=== PATIENT | male | born 1970 | race American Indian/Alaskan Native ===

== ENCOUNTER 2017-04-04 12:06 | Emergency (ER) | payer SELFPAY ==
[2017-04-04 12:13] VITALS: BP 161/78; PULSE 62; RESP 18; TEMP 98.2; O2SAT 100
--- NOTE | 2017-04-04 13:09 | C.PDOC ---
History Of Present Illness 46 yr old male with history of hemorrhoids, presents to the ER with complaints of painful lump to the rectal area for the past 5 day. Patient reports of intermittent rectal bleeding with bowel movement. Patient reports he has been using preparation H but the symptoms continue. Denies fever, nausea, vomiting, abdominal pain, diarrhea or dysuria. Time Seen by Provider: 04/04/17 12:21 Chief Complaint (Nursing): GI Problem History Per: Patient History/Exam Limitations: no limitations Onset/Duration Of Symptoms: Days (5) Recent travel outside of the [place]: No Past Medical History Reviewed: Historical Data, Nursing Documentation, Vital Signs Vital Signs: Last Vital Signs Temp 98.2 F 04/04/17 12:12 Pulse 62 04/04/17 12:12 Resp 18 04/04/17 12:12 BP 161/78 H 04/04/17 12:12 Pulse Ox 100 04/04/17 20:41 - Medical History PMH: No Chronic Diseases Family History: States: No Known Family Hx - Social History Hx Alcohol Use: No Hx Substance Use: No Review Of Systems Except As Marked, All Systems Reviewed And Found Negative. Constitutional: Negative for: Fever Gastrointestinal: Positive for: Rectal Pain (Painful lump to the rectal area with intermittent bleeding with BM). Negative for: Nausea, Vomiting, Abdominal Pain, Diarrhea, Constipation Physical Exam - Physical Exam Appears: Non-toxic, No Acute Distress Skin: Warm, Dry, No Rash Head: Atraumatic, Normacephalic Eye(s): bilateral: Normal Inspection Oral Mucosa: Moist Neck: Normal ROM Cardiovascular: Rhythm Regular, No Friction Rub, No Murmur Respiratory: Normal Breath Sounds, No Rales, No Rhonchi, No Wheezing Gastrointestinal/Abdominal: Soft, No Tenderness Rectal: Hemorrhoids (Thrombosed hemorrhoid to the 6 oclock position) Back: Normal Inspection, No CVA Tenderness Extremity: Normal ROM, No Swelling Neurological/Psych: Oriented x3, Normal Speech, Normal Motor Gait: Steady ED Course And Treatment O2 Sat by Pulse Oximetry: 100 (RA) Pulse Ox Interpretation: Normal Medical Decision Making Medical Decision Making: hemorrhoid is past 4 days and unable to excise at this point. Patient was referred to general surgeon. Disposition - Disposition Referrals: Froylan Negrete MD [Staff Provider] - Veronica Acosta MD [Staff Provider] - Disposition: HOME/ ROUTINE Disposition Time: 13:05 Condition: GOOD Additional Instructions: Follow up with the Surgeon within 1-2 days. 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 - Scribe Statement The provider has reviewed the documentation as recorded by the Scribe Apple Patel All medical record entries made by the Liudmila were at my direction and personally dictated by me. I have reviewed the chart and agree that the record accurately reflects my personal performance of the history, physical exam, medical decision making, and the department course for this patient. I have also personally directed, reviewed, and agree with the discharge instructions and disposition.
== END 2017-04-04 13:20 | disposition home or self-care (01) ==
LOC: C.ER 12:06
DX: K64.5 Perianal venous thrombosis (principal)